=== PATIENT | male | born 1960 | race Caucasian/White ===

== ENCOUNTER → 2016-11-03 | Outpatient (CLI) | payer OTHER ==
--- NOTE | 2016-11-03 15:20 | XR ---
EXAMINATION TYPE: XR chest 2V DATE OF EXAM: 11/03/2016 2:08 PM COMPARISON: Prior chest x-ray August HISTORY: COPD, wheezing and coughing TECHNIQUE: Frontal and lateral views of the chest are obtained. FINDINGS: There is no focal air space opacity, pleural effusion, or pneumothorax seen. The cardiac silhouette size is within normal limits. There are prominent lung volumes. The osseous structures a re intact. IMPRESSION: No acute cardiopulmonary process.
== END | disposition home or self-care (01) ==
LOC: RADXRMAIN 13:50
PROVIDERS: ATTEND Physician Assistant
DX: J44.1 Chronic obstructive pulmonary disease with (acute) exacerbation (principal)
CPT/HCPCS: 71020

== ENCOUNTER 2017-06-01 13:35 | Day surgery (SDC) | payer OTHER ==
[2017-05-27 14:11] VITALS: BMI 28.8
[~2017-06-01 13:35] MED LIST: DEXAMETHASONE SOD PHOSPHATE 10 MG/ML 1 ML VIAL IV ONE; HEPARIN SODIUM,PORCINE 5,000 UNIT/ML 1 ML VIAL SQ ONE; HYDROmorphone 0.5 MG/0.5 ML SYRINGE IVP PRN; LACTATED RINGERS 1,000 ML IV SCH; MIDAZOLAM 2 MG/2 ML VIAL IV PRN; ONDANSETRON 4 MG/2 ML VIAL IVP ONE; Pre Op ABX Message 1 EACH MISC MISCELLANE ONE; SCOPOLAMINE 1.5MG/72HR PATCH TRANSDERM ONE
[2017-06-01 13:55] VITALS: RESP 16; TEMP 97.6
[2017-06-01] MEDS ORDERED: LIDOCAINE 1% 20 ML VIAL (10MG/ML) FOR IV START INTRADERMA ONE (13:58)
[2017-06-01] MEDS ORDERED: HEPARIN SODIUM,PORCINE 5,000 UNIT/ML 1 ML VIAL SQ ONE (15:33)
[2017-06-01] MEDS ORDERED: PROPOFOL 10 MG/ML 20 ML VIAL IV ONE (16:02)
[2017-06-01] MEDS ORDERED: MIDAZOLAM 2 MG/2 ML VIAL ONE (16:02)
[2017-06-01] MEDS ORDERED: fentaNYL (PF) 50 MCG/ML 2 ML AMP ONE (16:02)
[2017-06-01] MEDS ORDERED: SODIUM CHLORIDE 0.9% 50 ML with ceFAZolin 2,000 MG IV ONE ×2 (16:10)
[2017-06-01] MEDS ORDERED: LIDOCAINE 1% INJ 10MG/ML (20 ML MDV) SQ ONE ×2 (16:17)
--- NOTE | 2017-06-01 16:27 | P.OP ---
Date of Procedure: 06/01/17 Preoperative Diagnosis: Chest wall cyst Postoperative Diagnosis: Same Procedure(s) Performed: Excision of cyst right chest wall Anesthesia: MAC Surgeon: Carmen Amezquita Estimated Blood Loss (ml): 5 IV fluids (ml): 600 Pathology: other (Cyst right chest wall) Condition: stable Disposition: PACU Indications for Procedure: cyst with prior infection right chest wall Operative Findings: Cyst right chest wall Description of Procedure: Patient was taken to the operating room and following sedation the right chest wall was prepped and draped in a sterile fashion. One percent lidocaine was used to anesthetize the area of concern. Wide excision was performed of an area of a cyst. This was approximately 2 and half centimeters in size. The incision was carried into the skin and subcutaneous tissue. After assured that hemostasis was attained the deep tissues were closed using a Vicryl suture. The skin was closed with nylon. The patient tolerated the procedure in stable condition. All instrument and sponge counts were correct at the end of the case.
--- NOTE | 2017-06-01 16:28 | P.DS ---
Providers Attending physician: Carmen Amezquita Primary care physician: Nino Walker Plan - Discharge Summary New Discharge Prescriptions: No Action Ipratropium-Albuterol Nebulize [Duoneb 0.5 mg-3 mg/3 ml Soln] 3 ml IH RT-QID #120 ampul.neb LORazepam [Ativan] 1 mg PO Q6HR PRN #20 tab PRN Reason: Anxiety Minocycline [Minocin] 100 mg PO Q12HR Cetirizine HCl [Zyrtec] 10 mg PO DAILY Lisinopril [Zestril] 10 mg PO BID Albuterol Inhaler [Ventolin Hfa Inhaler] 1 - 2 puff INHALATION Q6HR PRN PRN Reason: Shortness Of Breath Or Wheezing Discharge Medication List Ipratropium-Albuterol Nebulize [Duoneb 0.5 mg-3 mg/3 ml Soln] 3 ml IH RT-QID # 120 ampul.neb 09/03/14 [Rx] LORazepam [Ativan] 1 mg PO Q6HR PRN #20 tab 09/03/14 [Rx] Albuterol Inhaler [Ventolin Hfa Inhaler] 1 - 2 puff INHALATION Q6HR PRN [History] Cetirizine HCl [Zyrtec] 10 mg PO DAILY 05/27/17 [History] Lisinopril [Zestril] 10 mg PO BID 05/27/17 [History] Minocycline [Minocin] 100 mg PO Q12HR 05/27/17 [History] Follow up Appointment(s)/Referral(s): Carmen Amezquita MD [STAFF PHYSICIAN] - 06/10/17 11:15 am Patient Instructions/Handouts: *Surgery [facility] - (Anesthesia) Discharge Instructions Outpatient Surgery Activity/Diet/Wound Care/Special Instructions: Do not drive today Discharge Disposition: HOME SELF-CARE
[2017-06-01 17:08] VITALS: BP 128/81; PULSE 78
== END 2017-06-01 17:10 | disposition home or self-care (01) ==
LOC: OR 13:35
PROVIDERS: ATTEND Surgery
DX: L72.0 Epidermal cyst (principal); J44.9 Chronic obstructive pulmonary disease, unspecified; J45.909 Unspecified asthma, uncomplicated; Z79.899 Other long term (current) drug therapy; F41.9 Anxiety disorder, unspecified
CPT/HCPCS: 88304; 11403; 12031; J2250; J1644; J1100; J2405; J2001; J3010; J0690; J2704